=== PATIENT | male | born 1950 | race Caucasian/White ===

== ENCOUNTER 2017-05-23 20:44 | Emergency (ER) | payer OTHER ==
[~2017-05-23] VITALS: Ht 180.3 cm; Wt 88.7 kg
[2017-05-23 21:38] LABS: MCH 32.8 PG (29.0-34.0); MCHC 34.9 G/DL (30.0-36.0); MEAN PLAT.VOLUME 9.1 uM^3 (9.0-12.4); PLATELET COUNT 193 K/uL (156-360); RBC DIS.WIDTH-CV 12.9 % (11.8-14.6); RBC DIS.WIDTH-SD 44.4 % (39-53); RED BLOOD COUNT 4.15 M/uL (4.00-5.50); WHITE BLOOD COUNT 13.2 K/uL (4.1-10.2)
[2017-05-23 21:47] LABS: CHLORIDE 105 mEq/L (99-109); POTASSIUM 3.9 mEq/L (3.7-5.4); SODIUM 137 mEq/L (136-147)
[2017-05-23 21:49] LABS: GLUCOSE 122 mg/dL (70-99)
[2017-05-23 21:50] LABS: ANION GAP 9 MEQ/L (2-14)
[2017-05-23 21:51] LABS: TOTAL BILIRUBIN 0.7 mg/dL (0.0-1.0)
[2017-05-23 21:52] LABS: ALKALINE PHOSPHATASE 59 IU/L (3-129)
[2017-05-23 21:53] LABS: GFR ESTIMATE (CALCULATED) > 59 mL/min/
[2017-05-23 21:54] LABS: UREA NITROGEN (BUN) 18 mg/dL (9-23)
[2017-05-23 22:46] LABS: LIPASE 14 U/L (1.0-51.0)
[2017-05-24] MEDS ORDERED: MIRALAX255 GM PO (01:05)
[2017-05-24 01:35] LABS: ADD MIUA? YES; BILIRUBIN NEGATIVE; BLOOD SMALL; COLOR YELLOW ((YELLOW)); GLUCOSE (STRIP) NEGATIVE; KETONES NEGATIVE; LEUKOCYTES NEGATIVE; NITRITE NEGATIVE; PROTEIN (STRIP) 30; SPECIFIC GRAVITY 1.021 (1.000-1.030)
[2017-05-24 01:37] LABS: BACTERIA NONE SEEN /HPF; EPITHELIAL CELLS NONE SEEN /HPF; MUCUS TRACE /LPF; UCUL ADDED? NO; WHITE BLOOD CELLS 0-5 /HPF (0-5)
[2017-05-24 02:23] VITALS: BP 145/86
== END 2017-05-24 02:24 | disposition home or self-care (01) ==
LOC: RME 20:44 → EME 20:44 → RME 05-24 02:24
DX: N99.89 Other postprocedural complications and disorders of genitourinary system (principal); R33.9 Retention of urine, unspecified; R03.0 Elevated blood-pressure reading, without diagnosis of hypertension; K59.00 Constipation, unspecified; Z98.890 Other specified postprocedural states
CPT/HCPCS: 74176; 80053; 81003; 83605; 83690; 85027; 99281; 99285